=== PATIENT | female | born 1985 | race Caucasian/White ===

== ENCOUNTER 2019-02-16 07:41 | Emergency (ER) | payer SELFPAY ==
[~2019-02-16] VITALS: Ht 157.5 cm; Wt 63.6 kg
[2019-02-16] MEDS ORDERED: LIDOCAINE 1% 10 ML VIAL INJ ONE (08:15)
[2019-02-16] MEDS ORDERED: PENICILLIN V POTASSIUM 500 MG TABLET PO ONE (08:15)
[2019-02-16 08:40] VITALS: BP 128/73
[2019-02-16] MEDS ORDERED: IBUPROFEN 800 MG TABLET PO ONE (08:45)
== END 2019-02-16 08:45 | disposition home or self-care (01) ==
LOC: EMS 07:42
DX: K04.7 Periapical abscess without sinus (principal); K08.409 Partial loss of teeth, unspecified cause, unspecified class; F17.210 Nicotine dependence, cigarettes, uncomplicated
CPT/HCPCS: 64400; 99284; J3490

== ENCOUNTER 2019-11-06 15:10 | Emergency (ER) | payer MEDICAID ==
[~2019-11-06] VITALS: Ht 157.5 cm; Wt 51.4 kg
[2019-11-06 15:12] VITALS: BP 132/92
== END 2019-11-06 15:38 | disposition left against medical advice (07) ==
LOC: EMS 15:14
DX: R21 Rash and other nonspecific skin eruption (principal); Z53.21 Procedure and treatment not carried out due to patient leaving prior to being seen by health care provider

== ENCOUNTER 2025-04-10 18:50 | Emergency (ER) | payer MEDICAID, OTHER ==
[~2025-04-10] VITALS: Ht 157.5 cm; Wt 45.5 kg
[2025-04-10 19:11] VITALS: TEMP 98.4
[2025-04-10 20:56] LABS: APPEARANCE,URINE CLEAR (CLEAR); GLUCOSE, URINE (UA) NEGATIVE (NEGATIVE); LEUKOCYTE ESTERASE ,URINE NEGATIVE (NEGATIVE); NITRATE,URINE NEGATIVE (NEGATIVE); OCCULT BLOOD,URINE NEGATIVE (NEGATIVE); SPECIFIC GRAVITIY, URINE 1.021 (1.003-1.030)
[2025-04-10 21:20] VITALS: BP 128/75; PULSE 72; RESP 15; O2SAT 100
== END 2025-04-10 21:33 | disposition home or self-care (01) ==
LOC: EMS 18:50
DX: R30.0 Dysuria (principal); F12.90 Cannabis use, unspecified, uncomplicated; F17.210 Nicotine dependence, cigarettes, uncomplicated; Z87.59 Personal history of other complications of pregnancy, childbirth and the puerperium
CPT/HCPCS: 81003; 84703; 99283